=== PATIENT | female | born 1945 | race Caucasian/White ===

== ENCOUNTER 2017-08-26 13:44 | Inpatient (IN) | payer OTHER ==
[2017-08-26 14:49] LABS: BASO % 0.3 % (0-2.0); EOS % 1.4 % (0-4.5); HEMATOCRIT 32.5 % (32.4-45.2); LYMPH % 5.5 % (8-40); MCH 21.3 pg (25.7-33.7); MCHC 30.6 g/dl (32.0-36.0); MEAN CELL VOLUME 69.7 fl (80-96); MEAN PLT VOLUME 7.9 fl (7.5-11.1); MONO % 7.7 % (3.8-10.2); NEUT % 85.1 % (42.8-82.8); PLATELET COUNT 398 K/MM3 (134-434); RBC 4.66 M/mm3 (3.60-5.2); RDW 19.8 % (11.6-15.6); WHITE BLOOD COUNT 11.1 K/mm3 (4.0-10.0)
--- NOTE | 2017-08-26 14:52 | PDOC ---
History of Present Illness <Cory Pitts - Last Filed: 08/26/17 15:55> - General History Source: Patient, Primary Care Provider Exam Limitations: No Limitations - History of Present Illness Initial Comments: 08/26/17 15:35 The patient is a 72-year-old female with past medical history of HTN was sent in by Dr. Mcbride for evaluation s/p abnormal CAT scan results. Patient presents with a progressively worsening nonproductive cough since the beginning of spring, states initially she was informed by peers as an allergies symptom. The patient states an increase in cough over the last 3 weeks, accompanied with shortness of breath, dyspnea on exertion and dyspnea when lying flat. The patient reported following up PCP for the cough last week and was prescribed Z Pack, with no relief. The patient was seen at the PCPs office yesterday for a chest and sinus X-ray and today for a CAT scan. The CAT showed fluid to the L. Lung and was sent in by Dr. Mcbride for further evaluation/admission. The patient reports she was informed by the radiologist about a possible abnormality in the abdomen, awaiting results. The patient states she had noticed a hardness above the umbilicus region, no pain associated. The patient reports over the last month and a half she had purposely lose weight. Denies fever, chills, or a headache. Denies hemoptysis or hematemesis. Denies chest pain or palpitations. Denies abdominal pain. Denies dysuria, hematuria, frequency or urgency to urinate. Denies vertigo or dizziness. Denies numbness, tingling or loss of sensation. Allergies: NKDA Social history: Occasional use of alcohol. Denies history of smoking or recreational drug use. Surgical history: Appendectomy (microscopy, 15-20 years ago) PCP: Dr. Gloria Mcbride <Meenu Mcwilliams - Last Filed: 08/26/17 16:00> - General Chief Complaint: Revisit,Radiology Variance Stated Complaint: RESPIRATORY Time Seen by Provider: 08/26/17 14:06 Past History - Suicide/Smoking/Psychosocial Hx Smoking History: Never smoked Hx Alcohol Use: No Drug/Substance Use Hx: No <Cory Pitts - Last Filed: 08/26/17 15:55> <Meenu Mcwilliams - Last Filed: 08/26/17 16:00> - Past Medical History Allergies/Adverse Reactions: Allergies Allergy/AdvReac Type Severity Reaction Status Date / Time No Known Allergies Allergy Verified 08/26/17 13:48 Home Medications: Ambulatory Orders Losartan Potassium 50 mg PO DAILY 08/26/17 Metoprolol Succinate [Toprol Xl] 50 mg PO DAILY 08/26/17 Review of Systems - Review of Systems Constitutional: No: Chills, Fever, Night Sweats Respiratory: Yes: Cough, Shortness of Breath, SOB with Exertion Cardiac (ROS): No: Chest Pain, Edema, Syncope ABD/GI: No: Nausea, Vomiting Neurological: No: Headache All Other Systems: Reviewed and Negative <Cory Pitts - Last Filed: 08/26/17 15:55> *Physical Exam - Vital Signs Last Vital Signs Temp Pulse Resp BP Pulse Ox 98.5 F 124 H 22 151/107 99 08/26/17 13:45 08/26/17 13:45 08/26/17 13:45 08/26/17 13:45 08/26/17 13:45 <Cory Pitts - Last Filed: 08/26/17 15:55> - Vital Signs Last Vital Signs Temp Pulse Resp BP Pulse Ox 98.5 F 118 H 24 130/78 95 08/26/17 13:45 08/26/17 14:50 08/26/17 14:50 08/26/17 14:50 08/26/17 14:51 - Physical Exam Comments: 08/26/17 14:58 GENERAL: The patient is awake, alert, and fully oriented, in no acute distress. HEAD: Normal with no signs of trauma. EYES: Pupils equal, round and reactive to light, extraocular movements intact, sclera anicteric, conjunctiva clear with no pallor. ENT: Ears normal, nares patent, oropharynx clear without exudates. Moist mucous membranes. NECK: Normal range of motion, supple without lymphadenopathy, JVD, or masses. LUNGS: (+) Distal breath sound on L. side. R. side clear, clear to auscultation bilaterally. No wheeze/crackles. HEART: Regular. Slightly tachycardia. Regular rate and rhythm, normal S1 and S2 without murmur or rub. ABDOMEN: (+) Palpable bump above the umbilicus. Soft/nontender/nondistended. BS wnl. No guarding or rebound. No hepatosplenomegaly. EXTREMITIES: (+) Trace pretibial edema bilaterally. Normal range of motion. No clubbing or cyanosis. No cords, erythema, or tenderness. NEUROLOGICAL: Cranial nerves II through XII grossly intact. Normal speech, normal gait. PSYCH: Normal mood, normal affect. SKIN: Warm, Dry, normal turgor, no rashes or lesions noted. <Meenu Mcwilliams - Last Filed: 08/26/17 16:00> Heart Score/ECG Review #1 General ECG Interpretation: Sinus Rhythm (tachy at 115), Normal Intervals (qtc 442), No acute ischemic changes <Cory Pitts - Last Filed: 08/26/17 15:55> ED Treatment Course - LABORATORY CBC & Chemistry Diagram: 08/26/17 14:40 08/26/17 14:40 <Cory Pitts - Last Filed: 08/26/17 15:55> - LABORATORY CBC & Chemistry Diagram: 08/26/17 14:40 08/26/17 14:40 - ADDITIONAL ORDERS Additional order review: 08/26/17 14:40 RBC 4.66 MCV 69.7 L MCHC 30.6 L RDW 19.8 H MPV 7.9 Neutrophils % 85.1 H D Lymphocytes % 5.5 L D Monocytes % 7.7 Eosinophils % 1.4 Basophils % 0.3 <Meenu Mcwilliams - Last Filed: 08/26/17 16:00> Medical Decision Making - Medical Decision Making 08/26/17 14:47 A portion of this note was documented by scribe services under my direction. I have reviewed the details of the note, within reason, and agree with the documentation with the following case summary and management plan written by me. 72-year-old female with history of hypertension sent for admission by Dr. Mcbride after being diagnosed with a large pleural effusion on CAT scan. Patient has been experiencing intractable dry cough for the last 3 months, was started on a Z-Wally last week without relief, chest x-ray was performed and showed an effusion and a follow-up CAT scan today showed a large effusion should she was sent for admission. Patient has been having worsening dyspnea on exertion and orthopnea, no chest pain or fevers or chills. Vital signs notable for tachycardia, O2 sat is normal Alert and comfortable seated in stretcher, tachypneic with talking Heart is regular tachycardia, lung sounds distant/decreased on L trace pretibial edema abd wall lesion 72y/o F with L pleural effusion in the setting of progressive dyspnea, sent for admission and pulm evaluation. labs, ekg admit 08/26/17 15:40 wbc 11. hgb 10, chem wnl. CT shows large L pleural effusion with nodularities in the abdomen. Will proceed with admission, Dr. Siegel called. 08/26/17 15:55 Accepted for inpatient med/surg by Dr. Siegel. <Cory Pitts - Last Filed: 08/26/17 15:55> - Medical Decision Making 08/26/17 15:59 CT/CHEST CT WITHOUT CONTRAST. A large left pleural effusion is noted which has developed since a radiographic study of 02/24/2013. No interval exams are available at this facility for direct comparison. There is aeration of a small portion of the left upper lobe. Minimal contralateral mediastinal displacement is noted. No obvious associated pleural soft tissue nodularity is seen however the exam partially images the upper abdomen with demonstration of loculated fluid within the left upper quadrant. There is also possible peritoneal soft tissue nodularity within the partially imaged left upper paracolic space. Dilatation of the partially imaged left renal collecting system is noted suggestive of hydronephrosis. An enlarged tyshawn hepatis region lymph node is seen with a 2.4 cm short axis diameter. Several enlarged portacaval lymph nodes are also noted. Status post cholecystectomy. Several small curvilinear nonspecific calcifications are seen within the right midabdomen. The right chest demonstrates no discrete abnormality No definite intrathoracic or axillary lymphadenopathy is seen no non contrast imaging. There there is no definite cardiac enlargement. No pericardial effusion is seen. There is no aortic aneurysm. The osseous structures demonstrates no gross CT evidence of acute pathology or neoplastic disease. Impression: A large left pleural effusion is noted with minimal contralateral mediastinal displacement. No obvious associated pleural soft tissue nodularity is seen. The partially imaged upper abdomen demonstrates lymphadenopathy, loculated fluid within the left upper quadrant and possible partial imaging of peritoneal soft tissue nodularity within the left paracolic space. There also appears to be partial imaging of left hydronephrosis correlate with abdomen/pelvic CT. Reported by: Lloyd Camp MD. 08/26/17 [id number] <Meenu Mcwilliams - Last Filed: 08/26/17 16:00> *DC/Admit/Observation/Transfer - Discharge Dispostion Decision to Admit order: Yes <Cory Pitts - Last Filed: 08/26/17 15:55> - Attestations Scribe Attestion: 08/26/17 14:58 Documentation prepared by Meenu Mcwilliams, acting as rn medical inpatient services for Cory Pitts MD. <Meenu Mcwilliams - Last Filed: 08/26/17 16:00> Diagnosis at time of Disposition: Pleural effusion, left - Discharge Dispostion Condition at time of disposition: Fair - Referrals Referrals: Shekhar Mcbride MD [Primary Care Provider] - - Patient Instructions - Post Discharge Activity
[2017-08-26 15:02] LABS: INR 1.14 (0.82-1.09); PROTHROMBIN TIME (PATIENT) 12.9 SEC (9.7-13.0)
[2017-08-26 15:05] LABS: ACTIVATED PTT 25.4 SECONDS (25.2-36.5)
[2017-08-26 15:11] LABS: ALBUMIN 3.3 g/dl (3.4-5.0); ANION GAP 8 (8-16); BLOOD UREA NITROGEN 12 mg/dL (7-18); CALCIUM 8.6 mg/dL (8.5-10.1); CHLORIDE 107 mmol/L (98-107); CO2 26 mmol/L (21-32); CREATININE 0.8 mg/dL (0.55-1.02); GLUCOSE,RANDOM 108 mg/dL (74-106); MAGNESIUM 2.3 mg/dL (1.8-2.4); POTASSIUM 4.1 mmol/L (3.5-5.1); SGOT/AST 24 U/L (15-37); SGPT/ALT 19 U/L (12-78); SODIUM 141 mmol/L (136-145)
[2017-08-26 15:15] LABS: ALK PHOS 78 U/L (45-117); BILIRUBIN,TOTAL 0.6 mg/dL (0.2-1.0); N-TERMINAL BNP 271.54 pg/ml (5-125); TOT PROT 7.3 g/dl (6.4-8.2)
[2017-08-26] MEDS ORDERED: ONDANSETRON 4 MG/2 ML VIAL IVPUSH PRN (16:13)
[2017-08-26] MEDS ORDERED: ACETAMINOPHEN 325 MG TABLET (FP) PO PRN (16:13)
--- NOTE | 2017-08-26 16:21 | HP ---
Admitting History and Physical - Primary Care Physician PCP: Shekhar Mcbride - Admission Chief Complaint: I was sent in History of Present Illness: Ms Recinos is a pleasant 72 year old female who was sent in by Dr Mcbride secondary to pleural effusion. She developed a chronic cough 3 months ago. It was dry in nature. She has been treated for allergies and bronchitis without improvement. She presented to Dr Mcbride and had a chest x-ray and chest CT. CT showed pleural effusions with loculation and she was sent here for further evaluation. She denies fevers, chills, lightheadedness, passing out, chest pain or pressure, abdominal pain, nausea, vomiting, constipation, diarrhea, difficulty or pain on urination, or swelling. History Source: Patient Limitations to Obtaining History: No Limitations - Past Medical History Cardiovascular: Yes: HTN - Past Surgical History Past Surgical History: Yes: Cholecystectomy - Smoking History Smoking history: Never smoked - Alcohol/Substance Use Hx Alcohol Use: No History of Substance Use: reports: None - Social History ADL: Independent History of Recent Travel: No Home Medications - Allergies Allergies/Adverse Reactions: Allergies Allergy/AdvReac Type Severity Reaction Status Date / Time No Known Allergies Allergy Verified 08/26/17 13:48 - Home Medications Home Medications: Ambulatory Orders Losartan Potassium 50 mg PO DAILY 08/26/17 Metoprolol Succinate [Toprol Xl] 50 mg PO DAILY 08/26/17 Family Disease History - Family Disease History Family Disease History: Heart Disease: Father Review of Systems Findings/Remarks: Full review of systems obtained, as per HPI and otherwise negative Physical Examination Vital Signs: Vital Signs Temperature 36.9 C 08/26/17 13:45 Pulse Rate 108 H 08/26/17 15:17 Respiratory Rate 22 08/26/17 15:17 Blood Pressure 140/82 08/26/17 15:17 O2 Sat by Pulse Oximetry (%) 96 08/26/17 15:17 Constitutional: Yes: Well Nourished, No Distress, Calm Eyes: Yes: Conjunctiva Clear, EOM Intact, PERRL HENT: Yes: Atraumatic, Normocephalic Cardiovascular: Yes: Tachycardia. No: Pulse Irregular, Gallop, Murmur, Rub Respiratory: Yes: Regular, Diminished (L side), Rhonchi (L side). No: CTA Bilaterally, Rales, Wheezes Gastrointestinal: Yes: Normal Bowel Sounds, Soft. No: Distention, Tenderness Extremities: Yes: WNL Edema: No Labs: CBC, BMP 08/26/17 14:40 08/26/17 14:40 Imaging - Results Cat Scan: Report Reviewed, Image Reviewed Problem List - Problems (1) Pleural effusion, left Assessment/Plan: -with loculations on CT scan -admit -thoracentesis ordered for an -send fluid for studies and cytology -pulmonary consult Code(s): J90 - PLEURAL EFFUSION, NOT ELSEWHERE CLASSIFIED (2) Hydronephrosis Assessment/Plan: -seen on CT scan of chest -will get renal ultrasound -may need CT scan A/P with contrast, but will evaluate possible hydronephrosis with ultrasound first -consult urology Code(s): N13.30 - UNSPECIFIED HYDRONEPHROSIS (3) HTN (hypertension) Assessment/Plan: -controlled -continue home regimen Code(s): I10 - ESSENTIAL (PRIMARY) HYPERTENSION
[2017-08-26 18:31] VITALS: BMI 38.3
[2017-08-26] MEDS: FLUTICASONE PROP 0.05% 16 GM NASAL SPRAY NS SCH (21:32)
[2017-08-26 22:26] LABS: ANISOCYTOSIS 1+; MACROCYTOSIS 1+; OVALOCYTE 1+
[2017-08-26 22:28] LABS: PLATELET ESTIMATE ADEQUATE
[2017-08-27 07:21] LABS: ALBUMIN 3.2 g/dl (3.4-5.0)
[2017-08-27 07:22] LABS: ANION GAP 6 (8-16); BLOOD UREA NITROGEN 12 mg/dL (7-18); CALCIUM 8.5 mg/dL (8.5-10.1); CHLORIDE 107 mmol/L (98-107); CO2 27 mmol/L (21-32); GLUCOSE,RANDOM 107 mg/dL (74-106); MAGNESIUM 2.2 mg/dL (1.8-2.4); PHOSPHOROUS 2.7 mg/dL (2.5-4.9); POTASSIUM 4.4 mmol/L (3.5-5.1); SODIUM 140 mmol/L (136-145)
[2017-08-27 07:24] LABS: BILIRUBIN,DIRECT 0.3 mg/dL (0.0-0.2); BILIRUBIN,TOTAL 0.8 mg/dL (0.2-1.0)
[2017-08-27 07:25] LABS: CREATININE 0.6 mg/dL (0.55-1.02)
[2017-08-27 08:11] LABS: BASO % 0.6 % (0-2.0); EOS % 3.6 % (0-4.5); HEMATOCRIT 31.4 % (32.4-45.2); HEMOGLOBIN 9.5 GM/dL (10.7-15.3); MCH 21.3 pg (25.7-33.7); MCHC 30.3 g/dl (32.0-36.0); MEAN CELL VOLUME 70.1 fl (80-96); MEAN PLT VOLUME 8.2 fl (7.5-11.1); MONO % 10.8 % (3.8-10.2); PLATELET COUNT 385 K/MM3 (134-434); RBC 4.48 M/mm3 (3.60-5.2); RDW 19.7 % (11.6-15.6); WHITE BLOOD COUNT 9.8 K/mm3 (4.0-10.0)
[2017-08-27 08:13] LABS: ADD RBC MORPHOLOGY YES
--- NOTE | 2017-08-27 09:16 | EKG ---
Test Reason : Blood Pressure : / mmHG Vent. Rate : 115 BPM Atrial Rate : 115 BPM P-R Int : 170 ms QRS Dur : 092 ms QT Int : 320 ms P-R-T Axes : 050 000 081 degrees QTc Int : 442 ms SINUS TACHYCARDIA NONSPECIFIC ST ABNORMALITY Confirmed by YUMIKO HODGSON MD ([id number]) on 08/27/2017 9:16:27 AM Referred By: Confirmed By:YUMIKO HODGSON MD
[2017-08-27] MEDS: LOSARTAN POTASSIUM 50 MG TABLET (FP) PO SCH (09:20)
--- NOTE | 2017-08-27 09:53 | PN ---
Progress Note (short form) - Note Progress Note: Dr. Siegel to document today. Anxious and await thoracentesis and the CT scan of Abdomen and Pelvis. I explained the serious nature of the preliminary findings to her.
--- NOTE | 2017-08-27 12:06 | CON.GU ---
Consult Consult Specialty:: Referred by:: Dr. Mcbride Reason for Consultation:: left hydronephrosis - History of Present Illness Chief Complaint: left hydronephrosis History of Present Illness: 72 year old woman admitted with left pleural effusion with incidentally found mild left hydro seen on lower cuts of Chest CT. Patient is unaware of any previous similar findings and is not specifically symptomatic from that area. No UTIs, normal creatinine, no history of kidney stones. denies any signficant LUTS - History Source History Provided By: Patient, Medical Record Limitations to Obtaining History: No Limitations - Past Medical History Cardio/Vascular: Yes: HTN Renal/: No: Renal Failure, Renal Inusuff, BPH, Cancer, Hematuria, Hemodialysis , Neurogenic Bladder, Renal Calculi, UTI, Other - Past Surgical History Past Surgical History: Yes: Cholecystectomy - Alcohol/Substance Use Hx Alcohol Use: No History of Substance Use: reports: None - Smoking History Smoking history: Never smoked - Social History ADL: Independent History of Recent Travel: No Home Medications - Allergies Allergies/Adverse Reactions: Allergies Allergy/AdvReac Type Severity Reaction Status Date / Time No Known Allergies Allergy Verified 08/26/17 13:48 - Home Medications Home Medications: Ambulatory Orders Losartan Potassium 50 mg PO DAILY 08/26/17 Metoprolol Succinate [Toprol Xl] 50 mg PO DAILY 08/26/17 Family Disease History - Family Disease History Family Disease History: Heart Disease: Father Review of Systems - Review of Systems Constitutional: reports: No Symptoms Genitourinary: reports: No Symptoms Physical Exam- Vital Signs: Vital Signs Temperature 98.7 F 08/27/17 06:00 Pulse Rate 95 H 08/27/17 06:00 Respiratory Rate 20 08/27/17 06:00 Blood Pressure 152/75 08/27/17 06:00 O2 Sat by Pulse Oximetry (%) 95 08/27/17 10:00 Constitutional: Yes: Well Nourished, No Distress, Calm Gastrointestinal: Yes: WNL, Normal Bowel Sounds, Soft Renal/: No: Bladder Distention, CVA Tenderness - Left, CVA Tenderness - Right , Mckeon Present, Hematuria, Incontinence Labs: CBC, BMP 08/27/17 06:00 08/27/17 06:00 Imaging - Results Cat Scan: Report Reviewed Problem List - Problems (1) Hydronephrosis Assessment/Plan: incidentally found. NOn contrast CT abd/pel ordered. Code(s): N13.30 - UNSPECIFIED HYDRONEPHROSIS
--- NOTE | 2017-08-27 13:19 | PN ---
Progress Note, Physician Chief Complaint: Ms Recinos says she is still having dry cough but now also with pain at site of thoracentesis. No chest pressure, sob, or n/v. - Current Medication List Current Medications: Active Medications Acetaminophen (Tylenol -) 650 mg PO Q4H PRN PRN Reason: FEVER Fluticasone Propionate (Flonase -) 2 spray NS HS [facility] Last Admin: 08/26/17 21:32 Dose: 2 sprays Losartan Potassium (Cozaar -) 50 mg PO DAILY [facility] Last Admin: 08/27/17 09:20 Dose: 50 mg Metoprolol Succinate (Toprol Xl -) 50 mg PO DAILY [facility] Last Admin: 08/27/17 09:20 Dose: 50 mg Ondansetron HCl (Zofran Injection) 4 mg IVPUSH Q6H PRN PRN Reason: NAUSEA - Objective Vital Signs: Vital Signs Temperature 37.1 C 08/27/17 06:00 Pulse Rate 95 H 08/27/17 06:00 Respiratory Rate 20 08/27/17 06:00 Blood Pressure 152/75 08/27/17 06:00 O2 Sat by Pulse Oximetry (%) 95 08/27/17 10:00 Constitutional: Yes: No Distress, Calm, Obese Cardiovascular: Yes: Regular Rate and Rhythm. No: Gallop, Murmur, Rub Respiratory: Yes: Regular, Diminished (L base), On Nasal O2, Rhonchi (L base). No: CTA Bilaterally, Rales, Wheezes Gastrointestinal: Yes: Normal Bowel Sounds, Soft. No: Distention, Tenderness Extremities: Yes: WNL Edema: No Labs: CBC, BMP 08/27/17 06:00 08/27/17 06:00 INR, PTT INR 1.14 (0.82-1.09) 08/26/17 14:40 Problem List - Problems (1) Pleural effusion, left Code(s): J90 - PLEURAL EFFUSION, NOT ELSEWHERE CLASSIFIED (2) Hydronephrosis Code(s): N13.30 - UNSPECIFIED HYDRONEPHROSIS (3) HTN (hypertension) Code(s): I10 - ESSENTIAL (PRIMARY) HYPERTENSION Assessment/Plan (1) Pleural effusion, left Assessment/Plan: -s/p thoracentesis -fluid reviewed and case d/w Dr Rojas -suspect malignancy -consult ID for possible TB -consult CT surgery for loculated pleural effusion Code(s): J90 - PLEURAL EFFUSION, NOT ELSEWHERE CLASSIFIED (2) Hydronephrosis Assessment/Plan: -appreciate urology assistance -CT A/P without contrast Code(s): N13.30 - UNSPECIFIED HYDRONEPHROSIS (3) HTN (hypertension) Assessment/Plan: -controlled -continue home regimen Code(s): I10 - ESSENTIAL (PRIMARY) HYPERTENSION
--- NOTE | 2017-08-27 13:55 | PN ---
Progress Note (short form) - Note Progress Note: PULMONARY CONSULTATION DICTATED 08/27/17 IMP LARGE LEFT PLEURAL EFFUSION R/O MALIGNANT HTN INTRA-ABDOMINAL LYMPHADENOPATHY R/O MALIGNANT PLAN THORACENTESIS CHECK PLEURAL FLUID CHEMISTRIES,CYTOLOGY FURTHER W/U PENDING RESULTS OF PLEURAL FLUID CT ABD AND PELVIS DR LEWIS Problem List - Problems (1) Intra-abdominal lymphadenopathy Code(s): R59.0 - LOCALIZED ENLARGED LYMPH NODES (2) HTN (hypertension) Code(s): I10 - ESSENTIAL (PRIMARY) HYPERTENSION (3) Pleural effusion, left Code(s): J90 - PLEURAL EFFUSION, NOT ELSEWHERE CLASSIFIED
[2017-08-27 14:46] LABS: PLEURAL FLUID APPEARANCE CLOUDY; PLEURAL FLUID COLOR RED
[2017-08-27 14:47] LABS: PLEURAL FLUID RBC 237551 /mm3
--- NOTE | 2017-08-27 15:43 | CONS ---
DATE OF CONSULTATION: 08/27/2017 PULMONARY CONSULTATION REFERRING PHYSICIAN: Ricki Siegel M.D. HISTORY OF PRESENT ILLNESS: The patient is a 72-year-old white female with a past medical history of hypertension, nonsmoker, admitted to [facility] complaint of 1-month history with cough. Patient started developing cough approximately a couple months ago. At the time she was placed on antibiotics without any significant improvement. She went to see Dr. Mcbride a couple days prior this admission, had chest x-ray performed which revealed left pleural effusion, subsequently underwent a CAT scan of the chest which revealed large loculated left pleural effusion. She was admitted to [facility] for further evaluation. She denies any fever, chills, nausea, vomiting. She denies any recent URI symptoms. She is a nonsmoker. There is no history of occupational exposure to chemicals and fumes. There is no history of recent travels. States no one in the family has been ill. PAST MEDICAL HISTORY: Again includes hypertension. PAST SURGICAL HISTORY: Includes cholecystectomy. SOCIAL HISTORY: No occupational exposures. Nonsmoker. CURRENT MEDICATIONS: Include Tylenol, Zofran, Cozaar, Toprol, Flonase, and Ultram. REVIEW OF SYSTEMS: No orthopnea, no PND. Positive dyspnea on exertion, positive mild pleuritic chest pain, no fever, no chills. Positive cough, nonproductive. PHYSICAL EXAMINATION: General: The patient is a well-developed, well-nourished female, awake, alert, in no acute distress. Vital signs: She is afebrile. Blood pressure 152/75, respiratory rate 20, O2 saturation is 95% on room air. HEENT: Head is normocephalic, atraumatic. Neck: Supple. Heart: Regular. S1, S2. Chest: Diminished breath sounds on the left. Abdomen: Soft. Bowel sounds positive. Extremities: No cyanosis, edema. LABORATORY: WBC is 9.8, hemoglobin 9.5, hematocrit 31.4 with a platelet count of 385,000. BUN 12, creatinine 0.6, BNP 271. Chest CT, upper left pleural effusion. IMPRESSION: 1. Left pleural effusion, etiology undetermined. R/O malignant etiology in view of history of unilateral left pleural effusion and no recent infectious process. 2. Doubt infectious etiology 3. Hypertension. PLAN: Thoracentesis, ultrasound guidance. Further workup pending results of pleural fluid chemistries and cytology. Continue antihypertensive medications. ADDENDUM: On the CAT scan of the chest, it revealed a large left pleural effusion. Also upper abdomen demonstrated lymphadenopathy and loculated fluid within the left upper quadrant and soft tissue nodularity with left paracolic space. Thank you. Will follow closely with you. HARITHA LEWIS M.D. BECKY/[id number] MTDD
[2017-08-27 15:59] LABS: PLEURAL FLUID LYMPHOCYTES 6 %; PLEURAL FLUID MACROPHAGES 34 %; PLEURAL FLUID NEUTROPHIL 3 %
[2017-08-27 16:00] LABS: PLEURAL FLUID MESOTHELIAL 57 %
--- NOTE | 2017-08-27 16:08 | PN ---
Progress Note (short form) - Note Progress Note: Thoracic Surgery: Consulted for new left pleural effusion. Thoracentesis done. Await cytology before further management. Needs further assessment of abdomen regarding nodularity? Full consult to follow.
[2017-08-27] MEDS: traMADol HCL 50 MG TABLET PO PRN (19:20)
[2017-08-27] MEDS: FLUTICASONE PROP 0.05% 16 GM NASAL SPRAY NS SCH (21:07)
[2017-08-28 07:08] LABS: BASO % 0.5 % (0-2.0); EOS % 6.9 % (0-4.5); HEMATOCRIT 27.4 % (32.4-45.2); HEMOGLOBIN 8.4 GM/dL (10.7-15.3); LYMPH % 13.2 % (8-40); MCH 21.6 pg (25.7-33.7); MCHC 30.7 g/dl (32.0-36.0); MEAN CELL VOLUME 70.3 fl (80-96); MEAN PLT VOLUME 7.8 fl (7.5-11.1); MONO % 10.5 % (3.8-10.2); NEUT % 68.9 % (42.8-82.8); PLATELET COUNT 294 K/MM3 (134-434); RDW 19.5 % (11.6-15.6); WHITE BLOOD COUNT 8.4 K/mm3 (4.0-10.0)
[2017-08-28 07:45] LABS: ANION GAP 6 (8-16); BLOOD UREA NITROGEN 15 mg/dL (7-18); CHLORIDE 107 mmol/L (98-107); CO2 27 mmol/L (21-32); CREATININE 0.6 mg/dL (0.55-1.02); GLUCOSE,RANDOM 93 mg/dL (74-106); MAGNESIUM 2.2 mg/dL (1.8-2.4); PHOSPHOROUS 3.9 mg/dL (2.5-4.9); POTASSIUM 4.5 mmol/L (3.5-5.1); SODIUM 140 mmol/L (136-145)
--- NOTE | 2017-08-28 08:41 | PN ---
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[employer], retired last year single 10 pound weight loss- she is trying to lose weight +periumbilical mass for last 3 weeks probable metastatic cancer-exudative pleural effusion, peritoneal carcinomatosis doubt infectious process no role for antibiotcs she was anxious and requested ct scan results- I told her she has several nodules in her abdomen and will need further work up Problem List - Problems (1) Pleural effusion, left Code(s): J90 - PLEURAL EFFUSION, NOT ELSEWHERE CLASSIFIED (2) Peritoneal carcinomatosis Code(s): C78.6 - SECONDARY MALIGNANT NEOPLASM OF RETROPERITON AND PERITONEUM; C80.1 - MALIGNANT (PRIMARY) NEOPLASM, UNSPECIFIED
--- NOTE | 2017-08-28 09:27 | CONSULT ---
Consult Consult Specialty:: Thoracic Surgery Referred by:: Dr. Rojas; Dr. Siegel. Reason for Consultation:: Left pleural effusion - History of Present Illness Chief Complaint: SOB History of Present Illness: 72F with HTN p/w 3-4 weeks dyspnea on exertion (1flight stairs), 10lb weight loss, thoracentesis bloody (cytology pending). Only surgical hx is lap harvey. No pertinent family hx of cancer. - History Source History Provided By: Patient Limitations to Obtaining History: No Limitations - Past Medical History Cardio/Vascular: Yes: HTN Renal/: No: Renal Failure, Renal Inusuff, BPH, Cancer, Hematuria, Hemodialysis , Neurogenic Bladder, Renal Calculi, UTI, Other - Past Surgical History Past Surgical History: Yes: Cholecystectomy - Alcohol/Substance Use Hx Alcohol Use: No History of Substance Use: reports: None - Smoking History Smoking history: Never smoked - Social History ADL: Independent History of Recent Travel: No Home Medications - Allergies Allergies/Adverse Reactions: Allergies Allergy/AdvReac Type Severity Reaction Status Date / Time No Known Allergies Allergy Verified 08/26/17 13:48 - Home Medications Home Medications: Ambulatory Orders Losartan Potassium 50 mg PO DAILY 08/26/17 Metoprolol Succinate [Toprol Xl] 50 mg PO DAILY 08/26/17 Family Disease History - Family Disease History Family Disease History: Heart Disease: Father Review of Systems - Review of Systems Constitutional: reports: Malaise, Unintentional Wgt. Loss Neck: reports: No Symptoms Cardiovascular: reports: No Symptoms Gastrointestinal: reports: Other (early satiety) Genitourinary: reports: No Symptoms Breasts: reports: No Symptoms Reported Musculoskeletal: reports: No Symptoms Neurological: reports: No Symptoms Endocrine: reports: No Symptoms Physical Exam Vital Signs: Vital Signs Temperature 97.8 F 08/28/17 06:00 Pulse Rate 72 08/28/17 06:00 Respiratory Rate 20 08/28/17 06:00 Blood Pressure 111/57 08/28/17 06:00 O2 Sat by Pulse Oximetry (%) 95 08/27/17 21:00 Constitutional: Yes: Well Nourished Eyes: Yes: WNL HENT: Yes: WNL Cardiovascular: Yes: WNL Respiratory: Yes: Other (left side decreased breath sounds.) Gastrointestinal: Yes: Palpable Mass (umbilicus (scar vs. nodule)) Labs: CBC, BMP 08/28/17 06:00 08/28/17 06:00 Imaging - Results Cat Scan: Image Reviewed (Large left effusion, peritoneal nodules) Problem List - Problems (1) HTN (hypertension) Code(s): I10 - ESSENTIAL (PRIMARY) HYPERTENSION (2) Peritoneal carcinomatosis Code(s): C78.6 - SECONDARY MALIGNANT NEOPLASM OF RETROPERITON AND PERITONEUM; C80.1 - MALIGNANT (PRIMARY) NEOPLASM, UNSPECIFIED (3) Pleural effusion, left Code(s): J90 - PLEURAL EFFUSION, NOT ELSEWHERE CLASSIFIED Assessment/Plan 72F p/w SOB and large left pleural effusion c/w exudate, suspicious of malignant effusion. -Await cytology (suspect PORTFOLIO MANAGER source); -If engine testing supervisor, consult engine testing supervisor onc, consider repeat thoracentesis (drain all fluid), and start therapy; -Other options include pigtail, pleur-x, or vats with possible pleurodesis, all dependent on cytology. -Will follow, pa/lat on Wednesday.
--- NOTE | 2017-08-28 09:36 | CONS ---
DATE OF CONSULTATION: DATE OF DICTATION: 08/28/2017 REQUESTING PHYSICIAN: Ricki Siegel MD REASON FOR CONSULTATION: We are asked to see this patient for abnormal pleural fluid results. HISTORY OF PRESENT ILLNESS: This is a 72-year-old woman with a past medical history of hypertension. She sees them usually twice a year. About 4 months ago, she developed a cough, persistent and sort of irritating. About 2-4 weeks ago, the cough worsened. She went in to see Dr. Mcbride, was given a Z-Wally, which did not help. The cough was persistent. There was minimal sputum production. There was no hemoptysis. She had no fevers or chills. She then called Dr. Mcbride back and reported she was getting dyspneic. He sent her for CT scan of her chest. The CT scan showed a loculated pleural effusion. A large left pleural effusion was noted, and she was also noted on the abdomen to have adenopathy and possible peritoneal soft tissue nodules. She was admitted for further workup. She underwent a CT scan, a thoracentesis, and she was seen by Dr. Meyer for left-sided hydronephrosis, as well. I am asked to see her for thoracentesis results, which were notable for 2504 white cells and 237, 551 red cells. She is awake and alert. She reports her shortness of breath is improved, but has discomfort at the site. There is no history of any travel. 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 She retired last December. There is no history of any cigarette use. She is up to date on her mammograms and sees Dr. Mcbride twice a year. PAST MEDICAL HISTORY: Notable for hypertension. SURGICAL HISTORY: For cholecystectomy. SOCIAL HISTORY: She is a retired grocery cashier. No history of alcohol or cigarette or substance use. ALLERGIES: She has no known drug allergies. MEDICATIONS: As an outpatient include losartan and metoprolol. FAMILY HISTORY: She reports is noncontributory. REVIEW OF SYSTEMS: She has had a 10-pound weight loss. She has been trying to lose weight. She has had no fevers or chills. She reports having had a PPD that was negative in the past. There is no history of TB or any TB exposure. PHYSICAL EXAMINATION General: She is awake and alert. Vital signs: Temperature of 97.8, pulse is 72, blood pressure 111/57, respiratory rate 20, she is saturating 95% on room air. HEENT: She is normocephalic. Her eyes are anicteric. Neck: Supple. Lungs: Have diminished breath sounds at the left base. Heart: Regular rate and rhythm. Abdomen: Firm. She has a palpable periumbilical mass. She has, as well, a suspected axillary adenopathy bilaterally. Extremities: Without edema. Skin: She has no rash. DIAGNOSTIC DATA: Chest x-ray reveals a left-sided infiltrate. Her abdominal and pelvic CT which was done yesterday evening are notable for peritoneal carcinomatosis, upper abdominal adenopathy. She has a mild splenomegaly and minimal to mild dilatation of the left kidney collecting system. Her labs were notable for a white count on admission of 11.1, today it is 8.4, hemoglobin 8.4, platelets are 294. BUN 15, creatinine 0.6. Liver function tests are normal. LDH is 260. Pleural fluid reveals a total protein of 5.4, serum of 7, and LDH of 842 with a serum at 260, 2504 white cells with 237,551 red cells, mainly mesothelial macrophages. She has 6 lymphocytes and 3 neutrophils. SUMMARY: This is a 72-year-old woman with exudative pleural effusion, peritoneal mass nodules. I suspect has probable metastatic cancer. I doubt this is an infectious process. No role for antibiotics at this time. Patient was anxious regarding all her CT scan studies as she says nobody has spoken to her yet. So, I spoke to her and explained that she had nodules in the abdomen and would need further workup and that we were waiting for the results from her pleural fluid. ELIZA WEISS M.D. [id number]
--- NOTE | 2017-08-28 09:42 | PN ---
Progress Note, Physician History of Present Illness: pulmonary alert,nad,dyspnea improved,-cp. pt s/p thoracentesis. pleural fluid c/w exudate - Current Medication List Current Medications: Active Medications Acetaminophen (Tylenol -) 650 mg PO Q4H PRN PRN Reason: FEVER Last Admin: 08/27/17 13:55 Dose: 650 mg Fluticasone Propionate (Flonase -) 2 spray NS HS [facility] Last Admin: 08/27/17 21:07 Dose: 2 sprays Losartan Potassium (Cozaar -) 50 mg PO DAILY [facility] Last Admin: 08/27/17 09:20 Dose: 50 mg Metoprolol Succinate (Toprol Xl -) 50 mg PO DAILY [facility] Last Admin: 08/27/17 09:20 Dose: 50 mg Ondansetron HCl (Zofran Injection) 4 mg IVPUSH Q6H PRN PRN Reason: NAUSEA Tramadol HCl (Ultram -) 50 mg PO Q8H PRN PRN Reason: PAIN LEVEL 6-10 Last Admin: 08/27/17 19:20 Dose: 50 mg - Objective Vital Signs: Vital Signs Temperature 97.8 F 08/28/17 06:00 Pulse Rate 72 08/28/17 06:00 Respiratory Rate 20 08/28/17 06:00 Blood Pressure 111/57 08/28/17 06:00 O2 Sat by Pulse Oximetry (%) 95 08/27/17 21:00 Constitutional: Yes: Well Nourished, Calm Eyes: Yes: WNL HENT: Yes: WNL Neck: Yes: WNL Cardiovascular: Yes: Regular Rate and Rhythm, S1, S2 Respiratory: Yes: Diminished (diminished bs left) Gastrointestinal: Yes: Normal Bowel Sounds, Soft Extremities: Yes: WNL Edema: No Labs: CBC, BMP 08/28/17 06:00 08/28/17 06:00 INR, PTT INR 1.14 (0.82-1.09) 08/26/17 14:40 Laboratory Tests 08/27/17 11:49 Pleural Fluid Source Pleural Pleural Color Red Pleural WBC 2504 Pleural RBC [id number] Pleural Neutrophils 3 Pleural Lymphocytes 6 Pleural Macrophages 34 Pleural Mesothelial 57 Pleural Total Protein 5.490 Pleural Albumin 3 Pleural LDH 842 Pleural Amylase 11.64 Problem List - Problems (1) Intra-abdominal lymphadenopathy Code(s): R59.0 - LOCALIZED ENLARGED LYMPH NODES (2) HTN (hypertension) Code(s): I10 - ESSENTIAL (PRIMARY) HYPERTENSION (3) Pleural effusion, left Code(s): J90 - PLEURAL EFFUSION, NOT ELSEWHERE CLASSIFIED Assessment/Plan IMP LARGE LEFT PLEURAL EFFUSION LIKELY MALIGNANT HTN INTRA-ABDOMINAL LYMPHADENOPATHY R/O MALIGNANT PLAN CHECK PLEURAL FLUID CYTOLOGY O2 MAY REQUIRE PIGTAIL CATHETER FOR DRAINAGE DR LEWIS Problem List - Problems (1) Intra-abdominal lymphadenopathy Code(s): R59.0 - LOCALIZED ENLARGED LYMPH NODES (2) HTN (hypertension) Code(s): I10 - ESSENTIAL (PRIMARY) HYPERTENSION (3) Pleural effusion, left Code(s): J90 - PLEURAL EFFUSION, NOT ELSEWHERE CLASSIFIED
[2017-08-28] MEDS: LOSARTAN POTASSIUM 50 MG TABLET (FP) PO SCH (09:56)
--- NOTE | 2017-08-28 12:24 | PN ---
Progress Note, Physician Chief Complaint: SOB improved History of Present Illness: 72 year old female who was sent in by Dr Mcbride secondary to pleural effusion. She developed a chronic cough 3 months ago. It was dry in nature. She has been treated for allergies and bronchitis without improvement. She presented to Dr Mcbride and had a chest x-ray and chest CT. CT showed pleural effusions with loculation, underwent thoracocentesis , CT abd shows loculated effusion. - Current Medication List Current Medications: Active Medications Acetaminophen (Tylenol -) 650 mg PO Q4H PRN PRN Reason: FEVER Last Admin: 08/27/17 13:55 Dose: 650 mg Fluticasone Propionate (Flonase -) 2 spray NS HS [facility] Last Admin: 08/27/17 21:07 Dose: 2 sprays Losartan Potassium (Cozaar -) 50 mg PO DAILY [facility] Last Admin: 08/28/17 09:56 Dose: 50 mg Metoprolol Succinate (Toprol Xl -) 50 mg PO DAILY [facility] Last Admin: 08/28/17 09:56 Dose: 50 mg Ondansetron HCl (Zofran Injection) 4 mg IVPUSH Q6H PRN PRN Reason: NAUSEA Tramadol HCl (Ultram -) 50 mg PO Q8H PRN PRN Reason: PAIN LEVEL 6-10 Last Admin: 08/27/17 19:20 Dose: 50 mg - Objective Vital Signs: Vital Signs Temperature 98.4 F 08/28/17 09:59 Pulse Rate 85 08/28/17 09:59 Respiratory Rate 18 08/28/17 09:59 Blood Pressure 139/65 08/28/17 09:59 O2 Sat by Pulse Oximetry (%) 95 08/27/17 21:00 Constitutional: Well Nourished, No Distress, Calm HENT:Atraumatic, Normocephalic,Conjunctiva Clear, EOM Intact, PERRL Cardiovascular: Yes: Tachycardia. No: Pulse Irregular, Gallop, Murmur, Rub Respiratory:S/P Left thoracocentesisRegular, Diminished (L side), Gastrointestinal: Normal Bowel Sounds, Soft. No: Distention, Tenderness Extremities: Yes: WNL, no Edema ROLL FORMER: AOx3 non focal Labs: CBC, BMP 08/28/17 06:00 08/28/17 06:00 INR, PTT INR 1.14 (0.82-1.09) 08/26/17 14:40 Problem List - Problems (1) Pleural effusion, left Assessment/Plan: Most likely malignant , s/p thoracocetesis cytology is pending. Code(s): J90 - PLEURAL EFFUSION, NOT ELSEWHERE CLASSIFIED (2) HTN (hypertension) Assessment/Plan: Well controlled cont all home meds Code(s): I10 - ESSENTIAL (PRIMARY) HYPERTENSION (3) Peritoneal carcinomatosis Assessment/Plan: Most likely malignant awaiting pleural fluid cytology discussed with the patient. Code(s): C78.6 - SECONDARY MALIGNANT NEOPLASM OF RETROPERITON AND PERITONEUM; C80.1 - MALIGNANT (PRIMARY) NEOPLASM, UNSPECIFIED (4) Hydronephrosis Assessment/Plan: Evaluated by no intervention indicated Code(s): N13.30 - UNSPECIFIED HYDRONEPHROSIS (5) Anemia Assessment/Plan: F/U anemia w/u Code(s): D64.9 - ANEMIA, UNSPECIFIED
[2017-08-28] MEDS: FLUTICASONE PROP 0.05% 16 GM NASAL SPRAY NS SCH (21:53)
[2017-08-28] MEDS: traMADol HCL 50 MG TABLET PO PRN (23:48)
[2017-08-29 07:18] LABS: EOS % 8.5 % (0-4.5); HEMATOCRIT 29.9 % (32.4-45.2); HEMOGLOBIN 9.1 GM/dL (10.7-15.3); LYMPH % 13.8 % (8-40); MCH 21.5 pg (25.7-33.7); MCHC 30.6 g/dl (32.0-36.0); MEAN CELL VOLUME 70.3 fl (80-96); MEAN PLT VOLUME 7.9 fl (7.5-11.1); MONO % 12.1 % (3.8-10.2); NEUT % 64.6 % (42.8-82.8); PLATELET COUNT 325 K/MM3 (134-434); RBC 4.25 M/mm3 (3.60-5.2); RDW 19.7 % (11.6-15.6); WHITE BLOOD COUNT 8.5 K/mm3 (4.0-10.0)
[2017-08-29 07:49] LABS: ANION GAP 7 (8-16); BLOOD UREA NITROGEN 12 mg/dL (7-18); CALCIUM 8.1 mg/dL (8.5-10.1); CHLORIDE 103 mmol/L (98-107); CO2 28 mmol/L (21-32); GLUCOSE,RANDOM 96 mg/dL (74-106); POTASSIUM 4.3 mmol/L (3.5-5.1); SODIUM 138 mmol/L (136-145)
[2017-08-29 07:51] LABS: CREATININE 0.6 mg/dL (0.55-1.02)
--- NOTE | 2017-08-29 08:44 | PN ---
Progress Note, Physician History of Present Illness: pulmonary alert,nad,-sob,-cough - Current Medication List Current Medications: Active Medications Acetaminophen (Tylenol -) 650 mg PO Q4H PRN PRN Reason: FEVER Last Admin: 08/27/17 13:55 Dose: 650 mg Fluticasone Propionate (Flonase -) 2 spray NS HS [facility] Last Admin: 08/28/17 21:53 Dose: 2 sprays Losartan Potassium (Cozaar -) 50 mg PO DAILY [facility] Last Admin: 08/28/17 09:56 Dose: 50 mg Metoprolol Succinate (Toprol Xl -) 50 mg PO DAILY [facility] Last Admin: 08/28/17 09:56 Dose: 50 mg Ondansetron HCl (Zofran Injection) 4 mg IVPUSH Q6H PRN PRN Reason: NAUSEA Tramadol HCl (Ultram -) 50 mg PO Q8H PRN PRN Reason: PAIN LEVEL 6-10 Last Admin: 08/28/17 23:48 Dose: 50 mg - Objective Vital Signs: Vital Signs Temperature 97.9 F 08/29/17 06:00 Pulse Rate 73 08/29/17 06:00 Respiratory Rate 20 08/29/17 06:00 Blood Pressure 101/48 08/29/17 06:00 O2 Sat by Pulse Oximetry (%) 95 08/28/17 21:00 Constitutional: Yes: Well Nourished, Calm Eyes: Yes: WNL HENT: Yes: WNL Neck: Yes: WNL Cardiovascular: Yes: Regular Rate and Rhythm, S1, S2 Respiratory: Yes: Diminished (decreased bs on left) Gastrointestinal: Yes: Normal Bowel Sounds, Soft Extremities: Yes: WNL Edema: No Labs: CBC, BMP 08/29/17 06:00 08/29/17 06:00 INR, PTT INR 1.14 (0.82-1.09) 08/26/17 14:40 Problem List - Problems (1) Intra-abdominal lymphadenopathy Code(s): R59.0 - LOCALIZED ENLARGED LYMPH NODES (2) HTN (hypertension) Code(s): I10 - ESSENTIAL (PRIMARY) HYPERTENSION (3) Pleural effusion, left Code(s): J90 - PLEURAL EFFUSION, NOT ELSEWHERE CLASSIFIED Assessment/Plan IMP LARGE LEFT PLEURAL EFFUSION LIKELY MALIGNANT HTN INTRA-ABDOMINAL LYMPHADENOPATHY R/O MALIGNANT PLAN PLEURAL FLUID CYTOLOGY PENDING O2 MAY REQUIRE PIGTAIL CATHETER FOR DRAINAGE DR LEWIS Problem List - Problems (1) Intra-abdominal lymphadenopathy Code(s): R59.0 - LOCALIZED ENLARGED LYMPH NODES (2) HTN (hypertension) Code(s): I10 - ESSENTIAL (PRIMARY) HYPERTENSION (3) Pleural effusion, left Code(s): J90 - PLEURAL EFFUSION, NOT ELSEWHERE CLASSIFIED
[2017-08-29] MEDS: LOSARTAN POTASSIUM 50 MG TABLET (FP) PO SCH (09:57)
--- NOTE | 2017-08-29 12:30 | PN ---
Progress Note, Physician Chief Complaint: SOB improved History of Present Illness: 72 year old female who was sent in by Dr Mcbride secondary to pleural effusion. She developed a chronic cough 3 months ago. It was dry in nature. She has been treated for allergies and bronchitis without improvement. She presented to Dr Mcbride and had a chest x-ray and chest CT. CT showed pleural effusions with loculation, underwent thoracocentesis , CT abd shows loculated effusion. - Current Medication List Current Medications: Active Medications Acetaminophen (Tylenol -) 650 mg PO Q4H PRN PRN Reason: FEVER Last Admin: 08/27/17 13:55 Dose: 650 mg Fluticasone Propionate (Flonase -) 2 spray NS HS [facility] Last Admin: 08/28/17 21:53 Dose: 2 sprays Losartan Potassium (Cozaar -) 50 mg PO DAILY [facility] Last Admin: 08/29/17 09:57 Dose: 50 mg Metoprolol Succinate (Toprol Xl -) 50 mg PO DAILY [facility] Last Admin: 08/29/17 09:57 Dose: 50 mg Ondansetron HCl (Zofran Injection) 4 mg IVPUSH Q6H PRN PRN Reason: NAUSEA Tramadol HCl (Ultram -) 50 mg PO Q8H PRN PRN Reason: PAIN LEVEL 6-10 Last Admin: 08/28/17 23:48 Dose: 50 mg - Objective Vital Signs: Vital Signs Temperature 97.9 F 08/29/17 06:00 Pulse Rate 73 08/29/17 06:00 Respiratory Rate 20 08/29/17 06:00 Blood Pressure 101/48 08/29/17 06:00 O2 Sat by Pulse Oximetry (%) 95 08/28/17 21:00 Constitutional: Well Nourished, No Distress, Calm HENT:Atraumatic, Normocephalic,Conjunctiva Clear, EOM Intact, PERRL Cardiovascular: Yes: Tachycardia. No: Pulse Irregular, Gallop, Murmur, Rub Respiratory:S/P Left thoracocentesisRegular, Diminished (L side), Gastrointestinal: Normal Bowel Sounds, Soft. No: Distention, Tenderness Extremities: Yes: WNL, no Edema SCHEDULE SUPERVISOR: AOx3 non focal Labs: CBC, BMP 08/29/17 06:00 08/29/17 06:00 INR, PTT INR 1.14 (0.82-1.09) 08/26/17 14:40 Problem List - Problems (1) Pleural effusion, left Assessment/Plan: Most likely malignant , s/p thoracocetesis cytology is pending.May need Pintail Catheter Code(s): J90 - PLEURAL EFFUSION, NOT ELSEWHERE CLASSIFIED (2) HTN (hypertension) Assessment/Plan: Well controlled cont all home meds Code(s): I10 - ESSENTIAL (PRIMARY) HYPERTENSION (3) Peritoneal carcinomatosis Assessment/Plan: Most likely malignant awaiting pleural fluid cytology discussed with the patient. Code(s): C78.6 - SECONDARY MALIGNANT NEOPLASM OF RETROPERITON AND PERITONEUM; C80.1 - MALIGNANT (PRIMARY) NEOPLASM, UNSPECIFIED (4) Hydronephrosis Assessment/Plan: Evaluated by no intervention indicated Code(s): N13.30 - UNSPECIFIED HYDRONEPHROSIS (5) Anemia Assessment/Plan: F/U anemia w/u Code(s): D64.9 - ANEMIA, UNSPECIFIED
[2017-08-29] MEDS: traMADol HCL 50 MG TABLET PO PRN (21:05)
[2017-08-29] MEDS: FLUTICASONE PROP 0.05% 16 GM NASAL SPRAY NS SCH (21:06)
[2017-08-30 08:14] LABS: CHLORIDE 104 mmol/L (98-107); POTASSIUM 4.1 mmol/L (3.5-5.1); SODIUM 138 mmol/L (136-145)
[2017-08-30 08:22] LABS: ALBUMIN 2.5 g/dl (3.4-5.0); ALK PHOS 61 U/L (45-117); ANION GAP 5 (8-16); BILIRUBIN,TOTAL 0.8 mg/dL (0.2-1.0); BLOOD UREA NITROGEN 9 mg/dL (7-18); CALCIUM 7.9 mg/dL (8.5-10.1); CO2 29 mmol/L (21-32); CREATININE 0.5 mg/dL (0.55-1.02); GLUCOSE,RANDOM 90 mg/dL (74-106); SGOT/AST 23 U/L (15-37); SGPT/ALT 19 U/L (12-78); TOT PROT 5.7 g/dl (6.4-8.2)
--- NOTE | 2017-08-30 09:46 | PN ---
Progress Note (short form) - Note Progress Note: Dr. Siegel to document today. Await pleural fluid analysis. May need MULTIMEDIA INSTRUCTIONAL DESIGNER exam.
[2017-08-30] MEDS: LOSARTAN POTASSIUM 50 MG TABLET (FP) PO SCH (10:05)
--- NOTE | 2017-08-30 10:54 | PN ---
Progress Note, Physician History of Present Illness: pulmonary alert,nad,-sob,cough - Current Medication List Current Medications: Active Medications Acetaminophen (Tylenol -) 650 mg PO Q4H PRN PRN Reason: FEVER Last Admin: 08/27/17 13:55 Dose: 650 mg Fluticasone Propionate (Flonase -) 2 spray NS HS [facility] Last Admin: 08/29/17 21:06 Dose: 2 sprays Losartan Potassium (Cozaar -) 50 mg PO DAILY [facility] Last Admin: 08/30/17 10:05 Dose: 50 mg Metoprolol Succinate (Toprol Xl -) 50 mg PO DAILY [facility] Last Admin: 08/30/17 10:05 Dose: 50 mg Ondansetron HCl (Zofran Injection) 4 mg IVPUSH Q6H PRN PRN Reason: NAUSEA Tramadol HCl (Ultram -) 50 mg PO Q8H PRN PRN Reason: PAIN LEVEL 6-10 Last Admin: 08/29/17 21:05 Dose: 50 mg - Objective Vital Signs: Vital Signs Temperature 97.9 F 08/30/17 05:55 Pulse Rate 78 08/30/17 05:55 Respiratory Rate 18 08/30/17 05:55 Blood Pressure 108/66 08/30/17 05:55 O2 Sat by Pulse Oximetry (%) 95 08/29/17 21:00 Constitutional: Yes: Well Nourished, Calm Eyes: Yes: WNL HENT: Yes: WNL Neck: Yes: WNL Cardiovascular: Yes: Regular Rate and Rhythm, S1, S2 Respiratory: Yes: Diminished (diminished bs on left) Gastrointestinal: Yes: Normal Bowel Sounds, Soft Extremities: Yes: WNL Edema: No Labs: CBC, BMP 08/29/17 06:00 08/30/17 06:15 INR, PTT INR 1.14 (0.82-1.09) 08/26/17 14:40 - ....Imaging Chest X-ray: Report Reviewed, Image Reviewed Problem List - Problems (1) Intra-abdominal lymphadenopathy Code(s): R59.0 - LOCALIZED ENLARGED LYMPH NODES (2) HTN (hypertension) Code(s): I10 - ESSENTIAL (PRIMARY) HYPERTENSION (3) Pleural effusion, left Code(s): J90 - PLEURAL EFFUSION, NOT ELSEWHERE CLASSIFIED Assessment/Plan IMP LARGE LEFT PLEURAL EFFUSION LIKELY MALIGNANT HTN INTRA-ABDOMINAL LYMPHADENOPATHY R/O MALIGNANT PLAN PLEURAL FLUID CYTOLOGY PENDING O2 MAY REQUIRE PIGTAIL CATHETER FOR DRAINAGE DR LEWIS Problem List - Problems (1) Intra-abdominal lymphadenopathy Code(s): R59.0 - LOCALIZED ENLARGED LYMPH NODES (2) HTN (hypertension) Code(s): I10 - ESSENTIAL (PRIMARY) HYPERTENSION (3) Pleural effusion, left Code(s): J90 - PLEURAL EFFUSION, NOT ELSEWHERE CLASSIFIED
--- NOTE | 2017-08-30 11:33 | PN ---
Progress Note, Physician Chief Complaint: Ms Recinos says she is fine. Cough has resolved. Denies cp, sob, n/v. Feeling anxious about results. - Current Medication List Current Medications: Active Medications Acetaminophen (Tylenol -) 650 mg PO Q4H PRN PRN Reason: FEVER Last Admin: 08/27/17 13:55 Dose: 650 mg Fluticasone Propionate (Flonase -) 2 spray NS HS [facility] Last Admin: 08/29/17 21:06 Dose: 2 sprays Losartan Potassium (Cozaar -) 50 mg PO DAILY [facility] Last Admin: 08/30/17 10:05 Dose: 50 mg Metoprolol Succinate (Toprol Xl -) 50 mg PO DAILY [facility] Last Admin: 08/30/17 10:05 Dose: 50 mg Ondansetron HCl (Zofran Injection) 4 mg IVPUSH Q6H PRN PRN Reason: NAUSEA Tramadol HCl (Ultram -) 50 mg PO Q8H PRN PRN Reason: PAIN LEVEL 6-10 Last Admin: 08/29/17 21:05 Dose: 50 mg - Objective Vital Signs: Vital Signs Temperature 37.1 C 08/30/17 10:00 Pulse Rate 95 H 08/30/17 10:00 Respiratory Rate 18 08/30/17 10:00 Blood Pressure 127/65 08/30/17 10:00 O2 Sat by Pulse Oximetry (%) 95 08/30/17 09:00 Constitutional: Yes: No Distress, Calm, Obese Cardiovascular: Yes: Regular Rate and Rhythm. No: Gallop, Murmur, Rub Respiratory: Yes: Regular, Diminished (L base), On Nasal O2, Rhonchi (L base). No: CTA Bilaterally, Rales, Wheezes Gastrointestinal: Yes: Normal Bowel Sounds, Soft. No: Distention, Tenderness Extremities: Yes: WNL Edema: No Labs: CBC, BMP 08/29/17 06:00 08/30/17 06:15 INR, PTT INR 1.14 (0.82-1.09) 08/26/17 14:40 Problem List - Problems (1) Pleural effusion, left Code(s): J90 - PLEURAL EFFUSION, NOT ELSEWHERE CLASSIFIED (2) Hydronephrosis Code(s): N13.30 - UNSPECIFIED HYDRONEPHROSIS (3) HTN (hypertension) Code(s): I10 - ESSENTIAL (PRIMARY) HYPERTENSION Assessment/Plan (1) Pleural effusion, left Assessment/Plan: -s/p thoracentesis -awaiting cytology results, most likely malignant -reviewed CT surgery note and appreciate assistance -suspected ovarian in nature, may need post hole digging machine operator Code(s): J90 - PLEURAL EFFUSION, NOT ELSEWHERE CLASSIFIED (2) Hydronephrosis Assessment/Plan: -appreciate urology assistance Code(s): N13.30 - UNSPECIFIED HYDRONEPHROSIS (3) HTN (hypertension) Assessment/Plan: -controlled -continue home regimen Code(s): I10 - ESSENTIAL (PRIMARY) HYPERTENSION
[2017-08-30] MEDS: traMADol HCL 50 MG TABLET PO PRN (21:11)
[2017-08-30] MEDS: FLUTICASONE PROP 0.05% 16 GM NASAL SPRAY NS SCH (21:11)
[2017-08-31 06:06] LABS: SERUM IRON SATURATION 6 % (15-55); TOTAL IRON BINDING CAPACITY 307 ug/dL (250-450); UIBC 288 ug/dL (118-369)
[2017-08-31 06:36] LABS: BASO % 0.8 % (0-2.0); EOS % 8.4 % (0-4.5); HEMATOCRIT 25.5 % (32.4-45.2); HEMOGLOBIN 7.8 GM/dL (10.7-15.3); LYMPH % 11.2 % (8-40); MCH 21.5 pg (25.7-33.7); MCHC 30.6 g/dl (32.0-36.0); MEAN CELL VOLUME 70.2 fl (80-96); MEAN PLT VOLUME 7.6 fl (7.5-11.1); NEUT % 67.6 % (42.8-82.8); PLATELET COUNT 262 K/MM3 (134-434); RBC 3.63 M/mm3 (3.60-5.2); RDW 19.4 % (11.6-15.6); WHITE BLOOD COUNT 8.6 K/mm3 (4.0-10.0)
[2017-08-31 06:52] LABS: ANION GAP 6 (8-16); BLOOD UREA NITROGEN 10 mg/dL (7-18); CALCIUM 7.7 mg/dL (8.5-10.1); CHLORIDE 106 mmol/L (98-107); CO2 28 mmol/L (21-32); CREATININE 0.6 mg/dL (0.55-1.02); GLUCOSE,RANDOM 95 mg/dL (74-106); MAGNESIUM 2.2 mg/dL (1.8-2.4); PHOSPHOROUS 3.4 mg/dL (2.5-4.9); POTASSIUM 4.2 mmol/L (3.5-5.1); SODIUM 140 mmol/L (136-145)
[2017-08-31] MEDS: LOSARTAN POTASSIUM 50 MG TABLET (FP) PO SCH (09:20)
[2017-08-31 09:50] LABS: ANISOCYTOSIS 1+; MACROCYTOSIS 1+; OVALOCYTE 1+; PLATELET ESTIMATE NORMAL
--- NOTE | 2017-08-31 10:53 | PN ---
Progress Note (short form) - Note Progress Note: Dr. Siegel to document today. Pathology said the report would be ready today unless the slides have to be sent out for special staining.
--- NOTE | 2017-08-31 13:05 | PN ---
Progress Note, Physician Chief Complaint: Ms Recinos is without complaint today. Denies cp, sob, n/v. - Current Medication List Current Medications: Active Medications Acetaminophen (Tylenol -) 650 mg PO Q4H PRN PRN Reason: FEVER Last Admin: 08/27/17 13:55 Dose: 650 mg Fluticasone Propionate (Flonase -) 2 spray NS HS [facility] Last Admin: 08/30/17 21:11 Dose: 2 sprays Losartan Potassium (Cozaar -) 50 mg PO DAILY [facility] Last Admin: 08/31/17 09:20 Dose: 50 mg Metoprolol Succinate (Toprol Xl -) 50 mg PO DAILY [facility] Last Admin: 08/31/17 09:20 Dose: 50 mg Ondansetron HCl (Zofran Injection) 4 mg IVPUSH Q6H PRN PRN Reason: NAUSEA Tramadol HCl (Ultram -) 50 mg PO Q8H PRN PRN Reason: PAIN LEVEL 6-10 Last Admin: 08/30/17 21:11 Dose: 50 mg - Objective Vital Signs: Vital Signs Temperature 37.0 C 08/31/17 10:00 Pulse Rate 95 H 08/31/17 10:00 Respiratory Rate 18 08/31/17 10:00 Blood Pressure 118/61 08/31/17 10:00 O2 Sat by Pulse Oximetry (%) 94 L 08/31/17 09:00 Constitutional: Yes: No Distress, Calm, Obese Cardiovascular: Yes: Regular Rate and Rhythm. No: Gallop, Murmur, Rub Respiratory: Yes: Regular, Diminished (L base), Rhonchi (L base). No: CTA Bilaterally, Rales, Wheezes Gastrointestinal: Yes: Normal Bowel Sounds, Soft. No: Distention, Tenderness Extremities: Yes: WNL Edema: No Labs: CBC, BMP 08/31/17 06:00 08/31/17 06:00 INR, PTT INR 1.14 (0.82-1.09) 08/26/17 14:40 Problem List - Problems (1) Pleural effusion, left Code(s): J90 - PLEURAL EFFUSION, NOT ELSEWHERE CLASSIFIED (2) Hydronephrosis Code(s): N13.30 - UNSPECIFIED HYDRONEPHROSIS (3) HTN (hypertension) Code(s): I10 - ESSENTIAL (PRIMARY) HYPERTENSION Assessment/Plan (1) Pleural effusion, left Assessment/Plan: -s/p thoracentesis -awaiting cytology results, most likely malignant -reviewed CT surgery note and appreciate assistance -suspected ovarian in nature, may need land management forester -once pathology results can further address fluid removal and move forward with treatment Code(s): J90 - PLEURAL EFFUSION, NOT ELSEWHERE CLASSIFIED (2) Hydronephrosis Assessment/Plan: -appreciate urology assistance Code(s): N13.30 - UNSPECIFIED HYDRONEPHROSIS (3) HTN (hypertension) Assessment/Plan: -controlled -continue home regimen Code(s): I10 - ESSENTIAL (PRIMARY) HYPERTENSION Dispo -lab holiday tomorrow
--- NOTE | 2017-08-31 13:12 | PN ---
Progress Note (short form) - Note Progress Note: PULMONARY Some dyspnea with exertion. No chest pain. Cytology still pending. Vital Signs Period Temp Pulse Resp BP Sys/Ruiz Pulse Ox Last 24 Hr 97.7 F-99.9 F 82-95 18-20 118-141/61-75 94-95 Gen: NAD at rest Heart: RRR Lung: decreased breath sounds left base 1/2 up Abd: soft, nontender Ext: no edema CBC, BMP 08/31/17 06:00 08/31/17 06:00 Active Medications Acetaminophen (Tylenol -) 650 mg PO Q4H PRN PRN Reason: FEVER Last Admin: 08/27/17 13:55 Dose: 650 mg Fluticasone Propionate (Flonase -) 2 spray NS HS [facility] Last Admin: 08/30/17 21:11 Dose: 2 sprays Losartan Potassium (Cozaar -) 50 mg PO DAILY [facility] Last Admin: 08/31/17 09:20 Dose: 50 mg Metoprolol Succinate (Toprol Xl -) 50 mg PO DAILY [facility] Last Admin: 08/31/17 09:20 Dose: 50 mg Ondansetron HCl (Zofran Injection) 4 mg IVPUSH Q6H PRN PRN Reason: NAUSEA Tramadol HCl (Ultram -) 50 mg PO Q8H PRN PRN Reason: PAIN LEVEL 6-10 Last Admin: 08/30/17 21:11 Dose: 50 mg A/P Left Pleural Effusion s/p thoracentesis r/o Malignancy HTN - f/u cytology - ambulate pt, if can ambulate without symptoms can d/c home with outpt f/u for results - DVT prophylaxis
[2017-08-31 16:19] LABS: BASO % 0.6 % (0-2.0); EOS % 7.9 % (0-4.5); HEMATOCRIT 29.3 % (32.4-45.2); HEMOGLOBIN 8.9 GM/dL (10.7-15.3); MCH 21.3 pg (25.7-33.7); MCHC 30.4 g/dl (32.0-36.0); MEAN CELL VOLUME 70.1 fl (80-96); MEAN PLT VOLUME 7.7 fl (7.5-11.1); MONO % 9.7 % (3.8-10.2); NEUT % 70.8 % (42.8-82.8); PLATELET COUNT 375 K/MM3 (134-434); RBC 4.18 M/mm3 (3.60-5.2); RDW 19.9 % (11.6-15.6); WHITE BLOOD COUNT 9.9 K/mm3 (4.0-10.0)
[2017-08-31] MEDS ORDERED: PT OWN MED DRAWER 7, Y5N ONE (20:58)
[2017-08-31] MEDS: traMADol HCL 50 MG TABLET PO PRN (21:26)
[2017-08-31] MEDS: FLUTICASONE PROP 0.05% 16 GM NASAL SPRAY NS SCH (21:28)
[2017-09-01] MEDS ORDERED: PT OWN MED DRAWER 7, Y5N ONE (09:25)
[2017-09-01] MEDS: LOSARTAN POTASSIUM 50 MG TABLET (FP) PO SCH (09:30)
[2017-09-01 10:42] VITALS: PULSE 87
--- NOTE | 2017-09-01 10:58 | PN ---
Progress Note (short form) - Note Progress Note: PULMONARY Denies shortness of breath or chest pain. Cytology still pending. Vital Signs Period Temp Pulse Resp BP Sys/Ruiz Pulse Ox Last 24 Hr 98.0 F-99.9 F 68-106 18-20 115-151/51-86 94-97 Gen: NAD at rest Heart: RRR Lung: decreased breath sounds left base 1/2 up Abd: soft, nontender Ext: no edema CBC, BMP 08/31/17 16:00 08/31/17 06:00 Active Medications Acetaminophen (Tylenol -) 650 mg PO Q4H PRN PRN Reason: FEVER Last Admin: 08/27/17 13:55 Dose: 650 mg Fluticasone Propionate (Flonase -) 2 spray NS HS [facility] Last Admin: 08/31/17 21:28 Dose: 2 sprays Losartan Potassium (Cozaar -) 50 mg PO DAILY [facility] Last Admin: 09/01/17 09:30 Dose: 50 mg Metoprolol Succinate (Toprol Xl -) 50 mg PO DAILY [facility] Last Admin: 09/01/17 09:30 Dose: 50 mg Ondansetron HCl (Zofran Injection) 4 mg IVPUSH Q6H PRN PRN Reason: NAUSEA Tramadol HCl (Ultram -) 50 mg PO Q8H PRN PRN Reason: PAIN LEVEL 6-10 Last Admin: 08/31/17 21:26 Dose: 50 mg A/P Left Pleural Effusion s/p thoracentesis r/o Malignancy HTN - f/u cytology - can d/c home with outpt f/u - DVT prophylaxis
--- NOTE | 2017-09-01 11:07 | DS ---
Physical Examination Vital Signs: Vital Signs Temperature 98.5 F 09/01/17 10:00 Pulse Rate 87 09/01/17 10:00 Respiratory Rate 19 09/01/17 10:00 Blood Pressure 126/56 09/01/17 10:00 O2 Sat by Pulse Oximetry (%) 97 09/01/17 09:00 Constitutional: Yes: Anxious Eyes: Yes: Conjunctiva Clear Cardiovascular: Yes: Regular Rate and Rhythm Respiratory: Yes: Dullness (left base), Other (Bandage over site of thoracentesis was removed. The area looks clean and dry and is not draining but the nurse applied a bandaid over the area.) Gastrointestinal: Yes: Abdomen, Obese, Other (nodule palpated at umbilical area) ...Rectal Exam: Yes: Other (patient refused) Extremities: Yes: WNL Edema: No Neurological: Yes: Alert, Oriented Labs: CBC, BMP 08/31/17 16:00 08/31/17 06:00 Discharge Summary Reason For Visit: SOB,PLEURAL EFFUSION ON LEFT Current Active Problems Anemia (Acute)Iron deficiency HTN (hypertension) (Acute) Hydronephrosis (Acute) Peritoneal carcinomatosis (Acute) Pleural effusion, left (Acute) Thoracentesis Procedures: Principal: thoracentesis left pleural effusion. lab. CXR Other Procedures: Followup lab tests; consultation by Pulmonary and IR MD for thoracentesis. Hospital Course: Stable but anxious still waiting since Thoracentesis was done on Wednesday for results of pathology of pleural fluid. Wants to go home as repeat hemoglobin stable and vital signs normal. I will followup with her when results are available. Condition: Stable - Instructions Diet, Activity, Other Instructions: resume previous diet and activity Referrals: Lloyd Rojas MD [Staff Physician] - Shekhar Mcbride MD [Primary Care Provider] - Marquis Key MD [Staff Physician] - Disposition: HOME - Home Medications Comprehensive Discharge Medication List: Ambulatory Orders Losartan Potassium 50 mg PO DAILY 08/26/17 Metoprolol Succinate [Toprol Xl] 50 mg PO DAILY 08/26/17 Fluticasone Prop 0.05% Nasal [Flonase -] 2 spray NS HS #1 bottle 08/31/17
[2017-09-01 12:39] VITALS: BP 135/72; TEMP 98.6
--- NOTE | 2017-09-06 14:17 | PATH ---
Cytology Non-Gynecological Report Patient Name: MICHELE ADKINS [facility]. Rec. #: [id number] /Age/Gender: 1945 (Age: 72) / F Account: [id number] Location: 4 SO PEDS/ADOL Taken: 08/27/2017 Received: 08/27/2017 Reported: 09/06/2017 Physicians: Ricki Siegel M.D. Specimen(s) Received A: LEFT PLEURAL FLUID B: LEFT PLEURAL FLUID Clinical History Pleural effusion Final Diagnosis PLEURAL FLUID, LEFT, THORACENTESIS: SATISFACTORY FOR EVALUATION. POSITIVE FOR MALIGNANT CELLS. ADENOCARCINOMA, CONSISTENT WITH COLORECTAL PRIMARY. Comment: Clusters and singled highly atypical cells with eccentrically located nuclei present. Focal glandular formation noted. Immunohistochemistry study performed on the cell blocks (A1, A2) at [place], [place] ([id number]) interpreted at [facility] showed the tumor cells are positive for CK20, CDX2, MOC31, while negative for TTF-1, Napsin A, and p40. CD68 highlighted macrophages. Reactive mesothelial cells are positive for CK-7 and Calretinin. This immunoprofile is consistent with a colorectal primary tumor. Clinical correlation is recommended. Intradepartmental case reviewed with consensus on diagnosis. This case was discussed with Dr. Rojas and Dr. Siegel on September 06, 2017. Electronically Signed Raymond Sneed M.D. Gross Description Approximately 50cc of bloody fluid received fixed in 50% alcohol and approximately 2000cc of bloody fluid received fresh. Four cytofunnels and two cellblocks prepared.
== END 2017-09-01 12:45 | disposition home or self-care (01) | DRG 181 ==
LOC: JER 13:44 → JERBED 15:57 → J4S 17:55
PROVIDERS: ADMIT Internal Medicine; ATTEND Internal Medicine
PROC: 0W9B3ZX Drainage of Left Pleural Cavity, Percutaneous Approach, Diagnostic (ICD-10-PCS; principal; 2017-08-27)
DX: J91.0 Malignant pleural effusion (principal); N13.30 Unspecified hydronephrosis; C78.6 Secondary malignant neoplasm of retroperitoneum and peritoneum; I10 Essential (primary) hypertension; C80.1 Malignant (primary) neoplasm, unspecified; D64.9 Anemia, unspecified; R59.0 Localized enlarged lymph nodes; E66.9 Obesity, unspecified; Z68.38 Body mass index [BMI] 38.0-38.9, adult
CPT/HCPCS: 36415; 71045-TC-FY; 74176-TC; 76775-TC; 76942; 80048; 80053; 80076; 82042; 82150; 82272; 82550; 82607; 82728; 82945; 83540; 83550; 83615; 83735; 83880; 84100; 84157; 84478; 84484; 85025; 85610; 85730; 86850; 86900; 86901; 87070; 87075; 87102; 87116; 87205; 87206; 87210; 87899; 88108; 88305-TC; 89051; 93005; 93010; 94761; 99283-25